=== PATIENT | female | born 1945 | race Caucasian/White ===

== ENCOUNTER 2021-06-14 10:16 | Emergency (ER) | payer MEDICARE, OTHER ==
[~2021-06-14] VITALS: Ht 157.4 cm; Wt 62.7 kg
[2021-06-14 10:47] LABS: BASOPHILS # (AUTO) 0.1 10^3/uL (0.0-0.1); BASOPHILS % (AUTO) 1 % (0-10); EOSINOPHILS % (AUTO) 1 % (0-10); HEMATOCRIT 44 % (35-52); HEMOGLOBIN 14.1 g/dL (11.5-16.0); LYMPHOCYTES # (AUTO) 1.2 10^3/uL (1.0-4.0); LYMPHOCYTES % (AUTO) 24 % (12-44); MEAN CORPUSCULAR HEMOGLOBIN 27 pg (25-34); MEAN CORPUSCULAR HGB CONC 32 g/dL (32-36); MEAN CORPUSCULAR VOLUME 85 fL (80-99); MEAN PLATELET VOLUME 10.7 fL (9.0-12.2); MONOCYTES # (AUTO) 0.4 10^3/uL (0.0-1.0); MONOCYTES % (AUTO) 8 % (0-12); NEUTROPHILS # (AUTO) 3.3 10^3/uL (1.8-7.8); NEUTROPHILS % (AUTO) 66 % (42-75); PLATELET COUNT 282 10^3/uL (130-400)
[2021-06-14 10:48] LABS: ALBUMIN 4.3 GM/DL (3.2-4.5); POTASSIUM 4.1 MMOL/L (3.6-5.0)
[2021-06-14 10:49] LABS: CALCIUM 9.5 MG/DL (8.5-10.1)
[2021-06-14 10:52] LABS: BILIRUBIN,TOTAL 0.4 MG/DL (0.1-1.0)
[2021-06-14 10:54] LABS: CREATININE SERUM 0.82 MG/DL (0.60-1.30)
--- NOTE | 2021-06-14 11:00 | ED Neurological Problem ---
General Chief Complaint: Neurological Problems Stated Complaint: DIZZINESS, ARM,LEG NUMBNESS Nursing Triage Note: AMB TO ROOM WITH REPORTS WAS DOING THE BOOKS AT [employer]. WHEN BECAME DIZZY AND FELT TINGLE LIKE PINS DOWN L SIDE OF BODY. SYMPTOMS RESOLVED ON ADMIT. ONSET 1000 Source: patient Exam Limitations: no limitations History of Present Illness Date Seen by Provider: Jun 14, 2021 Time Seen by Provider: 10:30 Initial Comments Patient is a 75-year-old female who presents to the emergency department today with a chief complaint of a sudden onset of dizziness and numbness from her left face down her left arm and into her left leg. Patient states that she was working at her local [employer] at the onset of symptoms. She denies any headache, visual changes or speech difficulties. She states the symptoms lasted for about 30 minutes. She states she could not feel the left side but denies any actual complaints of weakness. She states by the time they got to the emergency department her symptoms were resolving. She has a history of thyroid disease only. Medication change made about 2 or 3 weeks ago per her primary care physician. She denies any recent illnesses such as fevers, chills, cough or congestion. No chest pain or shortness of breath. No abdominal pain, nausea or vomiting. No recent traumas. She is not on any blood thinners. She has never had symptoms like this before. Her primary care physician is Bushra Barrios. All other review of systems reviewed and negative except as stated. Timing/Duration: 1/2 hour Severity: moderate Associated Symptoms: numbness in legs/feet, tingling in legs/feet Allergies and Home Medications Patient Home Medication List Home Medication List Reviewed: Yes Review of Systems Review of Systems Constitutional: see HPI Eyes: No Symptoms Reported Ears, Nose, Mouth, Throat: no symptoms reported Respiratory: no symptoms reported Cardiovascular: no symptoms reported Gastrointestinal: no symptoms reported Genitourinary: no symptoms reported Musculoskeletal: no symptoms reported Skin: no symptoms reported Psychiatric/Neurological: Headache ("sparkles" in her vision - history of ocular migraine, 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 declines medications for this at this time), Numbness, Tingling, Other (dizziness) Past Uxhjcdr-[id number]-Ipqfmr Hx Patient Social History Tobacco Use?: No Substance use?: No Physical Exam Vital Signs Vital Signs - First Documented 06/14/21 10:20 Temp 35.8 Pulse 81 Resp 18 B/P (MAP) 163/103 (123) Pulse Ox 94 O2 Delivery Room Air Capillary Refill : Less Than 3 Seconds Height, Weight, BMI Height: '" Weight: lbs. oz. 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, no motor/sensory deficits, alert, normal mood/affect, oriented x 3 Crainal Nerves: normal hearing, normal speech, PERRL Coordination/Gait: normal finger to nose Motor/Sensory: no motor deficit, no sensory deficit, no pronator drift Skin: normal color, warm/dry Progress/Results/Core Measures Results/Orders Lab Results Laboratory Tests Test 06/14/21 10:24 Range/Units White Blood Count 5.0 4.3-11.0 10^3/uL Red Blood Count 5.16 H 3.80-5.11 10^6/uL Hemoglobin 14.1 11.5-16.0 g/dL Hematocrit 44 35-52 % Mean Corpuscular Volume 85 80-99 fL Mean Corpuscular Hemoglobin 27 25-34 pg Mean Corpuscular Hemoglobin Concent 32 32-36 g/dL Red Cell Distribution Width 13.3 10.0-14.5 % Platelet Count 282 130-400 10^3/uL Mean Platelet Volume 10.7 9.0-12.2 fL Immature Granulocyte % (Auto) 0 % Neutrophils (%) (Auto) 66 42-75 % Lymphocytes (%) (Auto) 24 12-44 % Monocytes (%) (Auto) 8 0-12 % Eosinophils (%) (Auto) 1 0-10 % Basophils (%) (Auto) 1 0-10 % Neutrophils # (Auto) 3.3 1.8-7.8 10^3/uL Lymphocytes # (Auto) 1.2 1.0-4.0 10^3/uL Monocytes # (Auto) 0.4 0.0-1.0 10^3/uL Eosinophils # (Auto) 0.0 0.0-0.3 10^3/uL Basophils # (Auto) 0.1 0.0-0.1 10^3/uL Immature Granulocyte # (Auto) 0.0 0.0-0.1 10^3/uL Sodium Level 138 135-145 MMOL/L Potassium Level 4.1 3.6-5.0 MMOL/L Chloride Level 107 98-107 MMOL/L Carbon Dioxide Level 23 21-32 MMOL/L Anion Gap 8 5-14 MMOL/L Blood Urea Nitrogen 10 7-18 MG/DL Creatinine 0.82 0.60-1.30 MG/DL Estimat Glomerular Filtration Rate 68 BUN/Creatinine Ratio 12 Glucose Level 101 70-105 MG/DL Calcium Level 9.5 8.5-10.1 MG/DL Corrected Calcium 9.3 8.5-10.1 MG/DL Total Bilirubin 0.4 0.1-1.0 MG/DL Aspartate Amino Transf (AST/SGOT) 14 5-34 U/L Alanine Aminotransferase (ALT/SGPT) 16 0-55 U/L Alkaline Phosphatase 57 40-136 U/L Total Protein 7.0 6.4-8.2 GM/DL Albumin 4.3 3.2-4.5 GM/DL Thyroid Stimulating Hormone (TSH) 0.36 0.35-4.94 UIU/ML Free Thyroxine 1.21 0.70-1.48 NG/DL My Orders Orders - DAVE DYKES MD Ed Iv/Invasive Line Start (06/14/21 10:37) Cbc With Automated Diff (06/14/21 10:37) Comprehensive Metabolic Panel (06/14/21 10:37) Ekg Tracing (06/14/21 10:37) Chest 1 View, Ap/Pa Only (06/14/21 10:37) Ct Head Wo (06/14/21 10:37) Thyroid Stimulating Hormone (06/14/21 10:37) Triiodothryonine T3 Free (06/14/21 10:37) Free T4 (Free Thyroxine) (06/14/21 10:37) Vital Signs/I&O 06/14/21 10:20 Temp 35.8 Pulse 81 Resp 18 B/P (MAP) 163/103 (123) Pulse Ox 94 O2 Delivery Room Air Blood Pressure Mean: 123 Progress Progress Note : Time: 10:59 Progress Note stroke NIH "0" at presentation [address] Barrios, the patient's primary care provider, she is comfortable with outpatient work-up for TIA. She advises counseling for blood pressure. Close follow-up. Return precautions. All of these were given to the patient. She verbalizes understanding. All questions are sought and answered. At this time patient is stable for discharge. Initial ECG Impression Date: Jun 14, 2021 Initial ECG Impression Time: 10:50 Initial ECG Rate: 74 Initial ECG Rhythm: Normal Sinus Initial ECG Intervals: Normal Initial ECG Impression: Normal Diagnostic Imaging Diagonstic Imaging: Xray Plain Films/CT/US/NM/MRI: chest, head Comments [facility] [place] [place] NAME: GONZALEZ MARS Guía Local REC#: [id number] PT STATUS: REG ER : 1945 PHYSICIAN: DAVE DYKES MD ADMIT DATE: 06/14/21/ER Draft Date of Exam:06/14/21 CHEST 1 VIEW, AP/PA ONLY INDICATION: Dizziness Frontal chest obtained at 1114 a.m. Heart is normal in size. Aorta is tortuous. The lungs are clear. There is no pneumothorax or pleural fluid IMPRESSION: No acute process in the chest. Dictated on workstation # [id number] Dict: 06/14/21 1119 Trans: 06/14/21 1122 [facility] [id number] Interpreted by: VIJAY DASILVA MD Electronically signed by: [facility] [place] NAME: GONZALEZ MARS [facility] REC#: [id number] PT STATUS: REG ER : 1945 PHYSICIAN: DAVE DYKES MD ADMIT DATE: 06/14/21/ER Draft Date of Exam:06/14/21 CT HEAD WO INDICATION: Left-sided numbness and dizziness. TECHNIQUE: Multiple contiguous axial images were obtained through the brain without the use of intravenous contrast. Auto Exposure Controls were utilized during the CT exam to meet ALARA standards for radiation dose reduction. COMPARISON: There is no prior study for comparison. FINDINGS: There were no extra-axial fluid collections. No intracranial hemorrhage. No intracranial mass or mass effect. No midline shift. The ventricles are normal in size and position. There were no focal parenchymal abnormalities in the brain. Calvarial windows are normal. Visualized portions of the mastoid air cells and sinuses are clear. IMPRESSION: Negative noncontrast brain CT. Dictated on workstation # [id number] Dict: 06/14/21 1118 Trans: 06/14/21 1124 [id number] Interpreted by: VIJAY DASILVA MD Electronically signed by: Departure Communication (PCP) 1150 am - discussion with Dr Barrios Impression Primary Impression: TIA (transient ischemic attack) Disposition: 01 HOME, SELF-CARE Condition: Stable Departure-Patient Inst. Decision time for Depature: 11:51 Referrals: BUSHRA BARRIOS MD (PCP/Family) Primary Care Physician Patient Instructions: Transient Ischemic Attack (DC) Add. Discharge Instructions: Please start monitoring your blood pressure on a daily basis and keep a record for your doctor. You can take one measurement once a day at different times of each day. Please call Dr Barrios office for a follow up appointment. You will need further workup to evaluate and manage stroke risk factors. Start taking a baby aspirin daily. If you have any further episodes of numbness, weakness, headache, vision or speech change, please come back to the Emergency Department. DAVE DYKES MD Jun 14, 2021 11:00
[2021-06-14 11:17] LABS: FREE T4 (FREE THYROXINE) 1.21 NG/DL (0.70-1.48)
--- NOTE | 2021-06-14 11:22 | Diagnostic Imaging Report ---
INDICATION: Dizziness Frontal chest obtained at 1114 a.m. Heart is normal in size. Aorta is tortuous. The lungs are clear. There is no pneumothorax or pleural fluid IMPRESSION: No acute process in the chest. Dictated by: Dictated on workstation # [id number]
--- NOTE | 2021-06-14 11:24 | Diagnostic Imaging Report ---
INDICATION: Left-sided numbness and dizziness. TECHNIQUE: Multiple contiguous axial images were obtained through the brain without the use of intravenous contrast. Auto Exposure Controls were utilized during the CT exam to meet ALARA standards for radiation dose reduction. COMPARISON: There is no prior study for comparison. FINDINGS: There were no extra-axial fluid collections. No intracranial hemorrhage. No intracranial mass or mass effect. No midline shift. The ventricles are normal in size and position. There were no focal parenchymal abnormalities in the brain. Calvarial windows are normal. Visualized portions of the mastoid air cells and sinuses are clear. IMPRESSION: Negative noncontrast brain CT. Dictated by: Dictated on workstation # [id number]
[2021-06-14 12:27] VITALS: BP 141/91
== END 2021-06-14 12:31 | disposition home or self-care (01) ==
LOC: ER 10:19
DX: G45.9 Transient cerebral ischemic attack, unspecified (principal)
CPT/HCPCS: 36415; 70450; 71045; 80053; 84439; 84443; 84481; 85025; 93005

== ENCOUNTER → 2021-06-24 | Outpatient (CLI) | payer MEDICARE, OTHER ==
--- NOTE | 2021-06-24 13:59 | Diagnostic Imaging Report ---
PROCEDURE: US carotid duplex, bilateral. TECHNIQUE: Multiple real-time grayscale images were obtained over the carotid arteries in various projections, bilaterally. Additional spectral analysis and color Doppler duplex images were also obtained. INDICATION: Transient ischemic attacks. No significant plaquing is identified in either carotid system. Velocities are normal bilaterally. No velocity elevation or stenosis is identified. Both vertebral arteries show antegrade flow. IMPRESSION: No evidence of a hemodynamically significant stenosis. Parameters based on the consensus panel [employer] and Doppler ultrasound criteria published August 2003, Radiology, Volume 229. DOPPLER (peak systolic velocity M/S Right Left CCA .65 .72 ICA Proximal .63 .45 ICA Mid .94 .54 ICA Distal .64 .52 RATIO 1.4 .80 ECA .58 .89 VERT 1.14 .40 Dictated by: Dictated on workstation # [id number]
== END ==
LOC: RAD 12:28
PROVIDERS: ATTEND Family Medicine
DX: G45.9 Transient cerebral ischemic attack, unspecified (principal)
CPT/HCPCS: 93306; 93880